=== PATIENT | female | born 1960 | race Caucasian/White ===

== ENCOUNTER 2018-08-17 17:15 | Emergency (ER) | payer BC ==
[2018-08-17 17:36] VITALS: BP 142/70
[2018-08-17] MEDS ORDERED: Ibuprofen 600 MG Tab PO ONE (17:53)
[2018-08-17] MEDS ORDERED: Acetaminophen 325 MG Tab PO ONE (17:53)
[2018-08-17] MEDS ORDERED: Lidocaine/EPINEPHrine/Tetracaine Soln 5 ML Each TOP ONE (17:54)
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
[2018-08-17] MEDS ORDERED: Bacitracin Oint 1 GM U/D Packet TOP ONE (18:05)
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
== END 2018-08-17 19:01 | disposition home or self-care (01) ==
LOC: JP.ED 17:15
DX: S63.502A Unspecified sprain of left wrist, initial encounter (principal); S50.311A Abrasion of right elbow, initial encounter; S80.211A Abrasion, right knee, initial encounter; Z88.2 Allergy status to sulfonamides; Z91.040 Latex allergy status; Z91.030 Bee allergy status; Z79.899 Other long term (current) drug therapy; Z90.710 Acquired absence of both cervix and uterus; V18.0XXA Pedal cycle driver injured in noncollision transport accident in nontraffic accident, initial encounter
CPT/HCPCS: 73110; 99283; A9270

== ENCOUNTER 2020-01-01 14:29 | Emergency (ER) | payer BC ==
[2020-01-01 14:54] VITALS: BP 184/89; PULSE 76
[2020-01-01] MEDS ORDERED: Ketorolac 60 MG/2 ML SDV IM ONE (15:14)
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
--- NOTE | 2020-01-02 08:47 | CR ---
Fingers Fifth Digit Lt F4 CLINICAL HISTORY: Injury FINDINGS: There is some articular marginal fracture at the base of the fifth middle phalanx There is a tiny ossific density in the palmar lateral soft tissues near the DIP joint is a question the significance. There are osteoarthritic changes in the interphalangeal joints. IMPRESSION: Marginal articular fracture along the palmar aspect of the base of the fifth middle phalanx Tiny ossific density near the lateral palmar aspect of the DIP joint of questional significance. Tiny avulsion is not excluded Osteoarthritis
== END 2020-01-01 17:39 | disposition home or self-care (01) ==
LOC: JP.ED 14:29
DX: S62.627A Displaced fracture of middle phalanx of left little finger, initial encounter for closed fracture (principal); S06.0X0A Concussion without loss of consciousness, initial encounter; F32.9 Major depressive disorder, single episode, unspecified; Z91.040 Latex allergy status; Z88.2 Allergy status to sulfonamides; Z91.030 Bee allergy status; Z79.899 Other long term (current) drug therapy; W01.0XXA Fall on same level from slipping, tripping and stumbling without subsequent striking against object, initial encounter
CPT/HCPCS: 73140-26-F4; 73140-F4; 96372; 99283-25; J1885

== ENCOUNTER 2022-03-21 06:26 | Day surgery (SDC) | payer OTHER ==
[2022-03-21] MEDS ORDERED: Lactated Ringers 1,000 ML IV SCH (07:00)
[2022-03-21] MEDS ORDERED: fentaNYL 50 MCG/ML SDV ONE (07:21)
[2022-03-21] MEDS ORDERED: Midazolam 1 MG/ML 2 ML SDV ONE (07:21)
[2022-03-21] MEDS ORDERED: Propofol 200 MG/20 ML SDV ONE ×2 (07:21→09:15)
[2022-03-21 10:18] VITALS: BP 153/71; PULSE 58
== END 2022-03-21 10:29 | disposition home or self-care (01) ==
LOC: JP.SDS 06:26
PROVIDERS: ATTEND Family Medicine
DX: Z12.11 Encounter for screening for malignant neoplasm of colon (principal); F32.A Depression, unspecified; E66.9 Obesity, unspecified; Z68.37 Body mass index [BMI] 37.0-37.9, adult; Z88.2 Allergy status to sulfonamides; Z91.030 Bee allergy status; Z91.040 Latex allergy status; Z98.890 Other specified postprocedural states; Z79.899 Other long term (current) drug therapy
CPT/HCPCS: 45378; J2250; J2704; J3010; J7120

== ENCOUNTER 2022-11-30 06:26 | Inpatient (IN) | payer OTHER ==
[2022-11-30] MEDS ORDERED: Scopolamine 1.5 MG Transdermal Patch TOP ONE (06:45)
[2022-11-30] MEDS ORDERED: Celecoxib 200 MG Cap PO ONE (06:45)
[2022-11-30] MEDS ORDERED: Meropenem 500 MG SDV ONE (06:45)
[2022-11-30] MEDS ORDERED: Lidocaine 1% with EPINEPHrine 1:100,000 50 ML MDV ONE (06:45)
[2022-11-30] MEDS ORDERED: Bupivacaine 0.5% 50 ML MDV ONE (06:45)
[2022-11-30] MEDS ORDERED: Propofol 200 MG/20 ML SDV ONE (07:12)
[2022-11-30] MEDS ORDERED: Neostigmine Methylsulfate 1 MG/ML 5 ML Syringe ONE (07:12)
[2022-11-30] MEDS ORDERED: Ondansetron 4 MG/2 ML SDV ONE (07:12)
[2022-11-30] MEDS ORDERED: Succinylcholine 200 MG/10 ML MDV ONE (07:12)
[2022-11-30] MEDS ORDERED: Dexamethasone 4 MG/ML SDV ONE (07:12)
[2022-11-30] MEDS ORDERED: Rocuronium 50 MG/5 ML Vial ONE (07:12)
[2022-11-30] MEDS ORDERED: Glycopyrrolate 0.2 MG/ML 5 ML MDV ONE (07:12)
[2022-11-30] MEDS ORDERED: fentaNYL 250 MCG/5 ML SDV ONE ×2 (07:12→08:59)
[2022-11-30] MEDS ORDERED: Dextrose 5%-Lactated Ringers 1,000 ML IV SCH (07:30)
[2022-11-30] MEDS ORDERED: Naloxone 0.4 MG/ML SDV IV PRN (08:00)
[2022-11-30] MEDS ORDERED: ceFAZolin 2 GM in Premix Bag 1 BAG IV ONE (08:00)
[2022-11-30] MEDS ORDERED: Ketamine 18 MG in Sodium Chloride 0.9% 19.82 ML IV SCH (08:15)
[2022-11-30] MEDS ORDERED: Ketamine 500 MG/5 ML MDV IV SCH (08:15)
[2022-11-30] MEDS: HYDROmorphone/Normal Saline 6 MG/30 ML PCA Vial IV PRN ×2 (09:29→17:00)
[2022-11-30] MEDS ORDERED: Linezolid 600 MG/300 ML Premix Bag IRR ONE (09:36)
[2022-11-30] MEDS ORDERED: hydrOXYzine HCL 100 MG/2 ML SDV IM ONE (10:18)
[2022-11-30] MEDS ORDERED: Cyclobenzaprine 10 MG Tab PO PRN (11:30)
[2022-11-30] MEDS: Dextrose 5%-Lactated Ringers 1,000 ML IV SCH ×2 (11:52→18:59)
[2022-11-30] MEDS ORDERED: Acetaminophen 500 MG Tab PO PRN (12:00)
[2022-11-30] MEDS ORDERED: diphenhydrAMINE 50 MG/ML SDV IVPUSH PRN (12:00)
[2022-11-30] MEDS ORDERED: Metoclopramide 10 MG/2 ML SDV IVPUSH PRN (12:00)
[2022-11-30] MEDS ORDERED: Labetalol 20 MG/4 ML Syringe IVPUSH PRN (12:00)
[2022-11-30] MEDS ORDERED: hydrOXYzine HCL 100 MG/2 ML SDV IM PRN (12:00)
[2022-11-30] MEDS ORDERED: Ondansetron 4 MG/2 ML SDV IVPUSH PRN (12:00)
[2022-11-30] MEDS: Pantoprazole 40 MG Vial IVPUSH SCH (13:36)
[2022-11-30] MEDS: cefOXitin 2 GM in Sodium Chloride 0.9% 50 ML IV SCH ×2 (13:57→19:55)
[2022-11-30] MEDS: Acetaminophen 500 MG Tab PO SCH (16:57)
[2022-11-30] MEDS: Heparin Sodium 5,000 Units/ML Vial SUBCUT SCH (17:01)
[2022-11-30] MEDS ORDERED: buPROPion 150 MG Tab.SR PO SCH (21:00)
[2022-11-30] MEDS: BUPROPION 200 MG PO SCH (21:05)
[2022-11-30] MEDS: Naltrexone 50 MG Tab PO SCH (21:05)
[2022-12-01] MEDS: Acetaminophen 500 MG Tab PO SCH ×3 (01:23→16:53)
[2022-12-01] MEDS: Dextrose 5%-Lactated Ringers 1,000 ML IV SCH (01:27)
[2022-12-01] MEDS: cefOXitin 2 GM in Sodium Chloride 0.9% 50 ML IV SCH ×2 (03:09→08:10)
[2022-12-01] MEDS: Heparin Sodium 5,000 Units/ML Vial SUBCUT SCH ×2 (06:32→17:08)
[2022-12-01] MEDS: Naltrexone 50 MG Tab PO SCH ×2 (07:59→20:36)
[2022-12-01] MEDS: Celecoxib 200 MG Cap PO SCH ×2 (07:59→20:35)
[2022-12-01] MEDS: BUPROPION 200 MG PO SCH ×2 (08:01→20:36)
[2022-12-01] MEDS: PARoxetine 20 MG Tab PO SCH (08:02)
[2022-12-01] MEDS: HYDROmorphone/Normal Saline 6 MG/30 ML PCA Vial IV PRN (08:48)
[2022-12-01] MEDS: Docusate Sodium 100 MG Cap PO SCH ×2 (08:50→20:36)
[2022-12-01] MEDS: Bisacodyl 5 MG Tab PO SCH ×2 (08:51→20:35)
[2022-12-01] MEDS: Cyclobenzaprine 10 MG Tab PO SCH ×2 (08:51→16:53)
[2022-12-01] MEDS: SCOPOLAMINE PATCH CHECK TOP SCH (08:57)
[2022-12-01] MEDS: Pantoprazole 40 MG Vial IVPUSH SCH (14:37)
[2022-12-02] MEDS: Acetaminophen 500 MG Tab PO SCH ×3 (00:12→17:20)
[2022-12-02] MEDS: Cyclobenzaprine 10 MG Tab PO SCH ×3 (00:12→15:43)
[2022-12-02] MEDS: Heparin Sodium 5,000 Units/ML Vial SUBCUT SCH ×2 (06:13→17:20)
[2022-12-02] MEDS: Dextrose 5%-Lactated Ringers 1,000 ML IV SCH ×2 (06:13→20:04)
[2022-12-02] MEDS ORDERED: Lidocaine 1% with EPINEPHrine 1:100,000 50 ML MDV ONE (06:24)
[2022-12-02] MEDS: Bupivacaine 0.5%/EPINEPHrine 1:200,000 50 ML MDV ONE ×2 (06:55→07:46)
[2022-12-02] MEDS: Meropenem 500 MG SDV ONE ×2 (06:57→07:49)
[2022-12-02] MEDS: Lidocaine 1% 50 ML MDV ONE ×2 (06:57→07:46)
[2022-12-02] MEDS ORDERED: Propofol 200 MG/20 ML SDV ONE ×2 (07:12→07:36)
[2022-12-02] MEDS ORDERED: fentaNYL 50 MCG/ML SDV ONE (07:12)
[2022-12-02] MEDS: HYDROmorphone/Normal Saline 6 MG/30 ML PCA Vial IV PRN ×2 (08:07→22:11)
[2022-12-02] MEDS: PARoxetine 20 MG Tab PO SCH (08:40)
[2022-12-02] MEDS: Naltrexone 50 MG Tab PO SCH ×2 (08:41→21:49)
[2022-12-02] MEDS: Celecoxib 200 MG Cap PO SCH ×2 (08:41→21:49)
[2022-12-02] MEDS: Bisacodyl 5 MG Tab PO SCH ×2 (08:41→21:49)
[2022-12-02] MEDS: Docusate Sodium 100 MG Cap PO SCH ×2 (08:41→21:49)
[2022-12-02] MEDS: BUPROPION 200 MG PO SCH ×2 (08:42→21:49)
[2022-12-02] MEDS ORDERED: Cyanocobalamin (Vitamin B12) 1,000 MCG/ML SDV IM ONE (09:00)
[2022-12-02] MEDS: SCOPOLAMINE PATCH CHECK TOP SCH (10:10)
[2022-12-02] MEDS: Pantoprazole 40 MG Vial IVPUSH SCH (14:24)
[2022-12-02] MEDS ORDERED: Magnesium Hydroxide 400 MG/5 ML Susp 30 ML Cup PO PRN (16:00)
[2022-12-02] MEDS ORDERED: Magnesium Hydroxide 400 MG/5 ML Susp 30 ML Cup PO ONE (16:00)
[2022-12-03] MEDS: Acetaminophen 500 MG Tab PO SCH ×3 (01:08→16:45)
[2022-12-03] MEDS: Cyclobenzaprine 10 MG Tab PO SCH ×3 (01:09→16:44)
[2022-12-03] MEDS: Dextrose 5%-Lactated Ringers 1,000 ML IV SCH (05:54)
[2022-12-03] MEDS: Heparin Sodium 5,000 Units/ML Vial SUBCUT SCH ×2 (06:32→18:17)
[2022-12-03] MEDS: Celecoxib 200 MG Cap PO SCH ×2 (08:42→21:00)
[2022-12-03] MEDS: Bisacodyl 5 MG Tab PO SCH ×2 (08:43→21:00)
[2022-12-03] MEDS: Docusate Sodium 100 MG Cap PO SCH ×2 (08:43→21:00)
[2022-12-03] MEDS: Naltrexone 50 MG Tab PO SCH ×2 (08:43→21:00)
[2022-12-03] MEDS: PARoxetine 20 MG Tab PO SCH (08:44)
[2022-12-03] MEDS: BUPROPION 200 MG PO SCH ×2 (08:45→21:00)
[2022-12-03] MEDS ORDERED: oxyCODONE 5 MG Tab PO PRN (09:14)
[2022-12-03] MEDS ORDERED: Sodium Chloride 0.9% 10 ML Syringe IV PRN (09:15)
[2022-12-03] MEDS: Pantoprazole 40 MG Tab.CR PO SCH (15:19)
[2022-12-04] MEDS: Cyclobenzaprine 10 MG Tab PO SCH ×2 (00:14→08:57)
[2022-12-04] MEDS: Acetaminophen 500 MG Tab PO SCH ×2 (00:15→08:58)
[2022-12-04 05:23] VITALS: BP 134/83; PULSE 70
[2022-12-04] MEDS: Heparin Sodium 5,000 Units/ML Vial SUBCUT SCH (05:23)
[2022-12-04] MEDS ORDERED: Bisacodyl 10 MG Supp RECTAL ONE (08:00)
[2022-12-04] MEDS: Celecoxib 200 MG Cap PO SCH (08:57)
[2022-12-04] MEDS: Bisacodyl 5 MG Tab PO SCH (08:57)
[2022-12-04] MEDS: Docusate Sodium 100 MG Cap PO SCH (08:57)
[2022-12-04] MEDS: Pantoprazole 40 MG Tab.CR PO SCH (08:57)
[2022-12-04] MEDS: Naltrexone 50 MG Tab PO SCH (08:58)
[2022-12-04] MEDS: BUPROPION 200 MG PO SCH (08:58)
[2022-12-04] MEDS: PARoxetine 20 MG Tab PO SCH (08:58)
== END 2022-12-04 11:10 | disposition home or self-care (01) | DRG 331 ==
LOC: JP.SDS 06:26 → JP.ICU 10:10
PROVIDERS: ADMIT Surgery; ATTEND Surgery
PROC: 0DT80ZZ Resection of Small Intestine, Open Approach (ICD-10-PCS; principal; 2022-11-30)
PROC: 0WUF0JZ Supplement Abdominal Wall with Synthetic Substitute, Open Approach (ICD-10-PCS; 2022-11-30)
PROC: 3E0M05Z Introduction of Adhesion Barrier into Peritoneal Cavity, Open Approach (ICD-10-PCS; 2022-11-30)
PROC: 0WQF0ZZ Repair Abdominal Wall, Open Approach (ICD-10-PCS; 2022-12-02)
DX: K43.0 Incisional hernia with obstruction, without gangrene (principal); N73.6 Female pelvic peritoneal adhesions (postinfective); Z20.822 Contact with and (suspected) exposure to COVID-19; Z79.899 Other long term (current) drug therapy; Z88.2 Allergy status to sulfonamides; Z91.030 Bee allergy status; Z91.040 Latex allergy status
CPT/HCPCS: 93005; A9270-GY; C9113; J0131; J0171; J0330; J0690; J0694; J1100; J1170; J1644; J2001; J2020; J2185; J2405; J2704; J2710; J2795; J3010; J3410; J3420; J3490; J7121; U0002

== ENCOUNTER 2024-05-21 16:49 | Emergency (ER) | payer MEDICARE, OTHER ==
[2024-05-21] MEDS: Aspirin 81 MG Tab.Chew PO ONE (17:24)
[2024-05-21] MEDS: Nitroglycerin 0.4 MG Tab.SL SL PRN (17:25)
[2024-05-21 17:28] LABS: BASOPHILS ABSOLUTE AUTO 0.05 K/uL (0.00-0.10); BASOPHILS PERCENT AUTO 0.7 % (0.1-1.3); EOSINOPHILS ABSOLUTE AUTO 0.19 K/uL (0.00-0.40); EOSINOPHILS PERCENT AUTO 2.7 % (0.0-5.4); HEMATOCRIT 38.7 % (34.3-46.0); HEMOGLOBIN 12.9 g/dL (11.2-15.5); IMMATURE GRAN ABSOLUTE AUTO 0.03 K/uL (0.00-0.23); IMMATURE GRAN PERCENT AUTO 0.4 % (0.0-0.7); LYMPHOCYTES ABSOLUTE AUTO 2.34 K/uL (0.8-3.3); LYMPHOCYTES PERCENT AUTO 33.3 % (11.4-47.7); MEAN CORPUSCULAR HEMOGLOBIN 29.1 pg (31.6-35.5); MEAN CORPUSCULAR HGB CONC 33.3 g/dL (31.6-35.5); MEAN CORPUSCULAR VOLUME 87.2 fL (81.4-99.0); MONOCYTES ABSOLUTE AUTO 0.57 K/uL (0.20-0.90); MONOCYTES PERCENT AUTO 8.1 % (3.3-12.6); NEUTROPHILS ABSOLUTE AUTO 3.85 K/uL (1.0-7.6); NEUTROPHILS PERCENT AUTO 54.8 % (40.0-78.1); PLATELET COUNT,PLT 243 K/uL (130-375); RED BLOOD CELL COUNT 4.44 M/uL (3.77-5.24)
[2024-05-21 17:51] LABS: ANION GAP 8.9 mmol/L (5.0-14.0); BLOOD UREA NITROGEN,BUN 22 mg/dL (7-18); CARBON DIOXIDE,CO2 29 mmol/L (21-32); CHLORIDE,CL 105 mmol/L (100-108); CREATININE 0.9 mg/dL (0.6-1.0); EST CRCL DRUG DOSING (CG) 62.86 mL/min; ESTIMATED GFR 71 mL/min (>60); GLUCOSE RANDOM 124 mg/dL (74-106); POTASSIUM,K 3.8 mmol/L (3.6-5.2); SODIUM,NA 143 mmol/L (140-148); TROPONIN I HIGH SENSITIVITY < 4.0 pg/mL (<=60.3)
[2024-05-21 18:12] VITALS: BP 155/73; PULSE 68
== END 2024-05-21 18:42 | disposition home or self-care (01) ==
LOC: JP.ED 16:49
DX: R07.9 Chest pain, unspecified (principal); E66.9 Obesity, unspecified; Z88.2 Allergy status to sulfonamides; Z91.030 Bee allergy status; Z91.040 Latex allergy status; Z86.16 Personal history of COVID-19; Z90.49 Acquired absence of other specified parts of digestive tract; Z90.710 Acquired absence of both cervix and uterus; Z68.38 Body mass index [BMI] 38.0-38.9, adult
CPT/HCPCS: 36415; 71046; 80048; 84484; 85025; 93005; 99285; A9270; 93010; 99284